=== PATIENT | male | born 1960 | race Caucasian/White ===

== ENCOUNTER 2025-06-14 14:42 | Outpatient (AMB) | payer OTHER, SELFPAY ==
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
--- OUTSIDE RECORDS SUMMARY | 2025-06-14 15:07 | XMS_ITS | Clinical Summary ---
Demographics Address [address] [facility] [place] [address] Home Phone Mobile Phone Home Phone Mobile Phone Preferred Language en Marital Status Legally Mandaen Affiliation Unknown Race White Ethnic Group Not or Lati no Author Organization [facility] Address [address] [place] [address] Phone Care Team Providers Care Hairspring Ii Inspector Name Role Phone Jose Alberto Trujillo MD Primary Care Provider [phone] Family History Medical History Relation Name Comments Autoimmune disease Neg Hx Breast cancer Neg Hx Colon cancer Neg Hx Coronary artery disease Neg Hx Diabetes Neg Hx Heart attack Neg Hx Heart failure Neg Hx Hyperlipidemia Neg Hx Hypertension Neg Hx Mental illness Neg Hx Prostate cancer Neg Hx Sleep apnea Neg Hx Thyroid disease Neg Hx Social History Tobacco Use Types Packs/Day Years Used Date Smoking Tobacco: Every Day Smokeless Tobacco: Never Alcohol Use Standard Drinks/Week Comments Not Asked 0 (1 standard drink = 0.6 oz pur e alcohol) Sex and Gender Information Value Date Recorded Sex Assigned at Not on file Legal Sex Male 1:11 PM EST Gender Identity Not on file Sexual Orientation Not on file Obstetrics History Plan of Treatment Health Maintenance Due Date Last Done Comments Pneumococcal Vaccine: 50+ Years (1 of 2 - PCV) 1981 Zoster Vaccines (1 of 2) 2012 COVID-19 Vaccine ( season) 2024 08/21/2022, 11/06/2021, 01/03/2021, Additional history exists Cholesterol Screening (Lipid Panel) 09/30/2024 Colorectal Cancer Screening: Colonoscopy 09/30/2024 HIV Screening 09/30/2024 Hepatitis C Screening 09/30/2024 Social Influencers of Health Screening 09/30/2024 Depression Screening 11/09/2024 Influenza Vaccine (#1) 2025 4, 10/02/2023, 08/26/2021 DTaP,Tdap,and Td Vaccines (2 - Td or Tdap) 09/12/2034 09/12/2024 RSV Immunization Adult Patients (1 - 1-dose 75+ series) 2037 HIB Vaccines Aged Out No longer eligi ble based on patient's age to complete this topic HPV Vaccines Aged Out No longer eligi ble based on patient's age to complete this topic Hepatitis A Vaccines Aged Out No long er eligible based on patient's age to complete this topic Hepatitis B Vaccines Aged Out No long er eligible based on patient's age to complete this topic IPV Vaccines Aged Out No longer eligi ble based on patient's age to complete this topic MMR Vaccines Aged Out No longer eligi ble based on patient's age to complete this topic Meningococcal ACWY Vaccine Aged Out N o longer eligible based on patient's age to complete this topic Meningococcal B Vaccine Aged Out No l onger eligible based on patient's age to complete this topic RSV Immunization Patients Under 20 months Aged Out No longer eligible based on patient's age to complete this topic Varicella Vaccines Aged Out No longer eligible based on patient's age to complete this topic Insurance * Guarantor: Alirio Khan Account Type Relation to Patient Date of Phone Billing Address Personal/Family Self 1960 [address] [place] [id number] [facility] Care Teams Hairspring Ii Inspector Relationship Specialty Start Date End Date Jose Alberto Trujillo MD [address] PCP - General Internal Medicine 03/01/12
== END 2025-06-14 15:07 | disposition home or self-care (01) ==
LOC: HO.HSM 14:42
PROVIDERS: PCP Internal Medicine; Referring Provider Internal Medicine; Visit Provider Psychiatry & Neurology Neurology
DX: G40.309 Generalized idiopathic epilepsy and epileptic syndromes, not intractable, without status epilepticus (principal)
CPT/HCPCS: 99214